=== PATIENT | male | born 1960 | race Caucasian/White ===

== ENCOUNTER 2016-10-10 08:52 | Day surgery (SDC) | payer BC ==
[~2016-10-10 08:52] MED LIST: LIDOCAINE HCL 1% MPF SOL ONE; PROPOFOL 500 MG/50 ML EMU IV ONE
[2016-10-10 09:23] VITALS: TEMP 97.1
[2016-10-10 10:52] VITALS: BP 150/88; PULSE 66; RESP 18; O2SAT 97
== END 2016-10-10 11:20 | disposition home or self-care (01) ==
LOC: SURG 08:52
PROVIDERS: ATTEND Internal Medicine Gastroenterology
DX: K21.9 Gastro-esophageal reflux disease without esophagitis (principal); Z87.19 Personal history of other diseases of the digestive system; K22.2 Esophageal obstruction; K44.9 Diaphragmatic hernia without obstruction or gangrene; K31.7 Polyp of stomach and duodenum; Q40.3 Congenital malformation of stomach, unspecified
CPT/HCPCS: 43239; 99001; J2001; J2704

== ENCOUNTER 2016-12-21 14:45 | Emergency (ER) | payer BC ==
[2016-12-21] MEDS ORDERED: MORPHINE SULFATE 10 MG/ML SOL ONE (14:50)
[2016-12-21] MEDS ORDERED: MORPHINE SULFATE 10 MG/ML SOL IV ONE (14:50)
[2016-12-21] MEDS ORDERED: TDAP VACCINE 0.5 ML SUS IM ONE ×2 (14:54→15:16)
[2016-12-21 14:58] VITALS: TEMP 96.5
[2016-12-21 15:02] LABS: BASOPHILS % (AUTO) 2 % (0-3); EOSINOPHILS % (AUTO) 3 % (0-9); HEMATOCRIT 44 % (39-53); MEAN CORPUSCULAR HGB CONC 35.1 gm/dl (32.0-36.0); MEAN CORPUSCULAR VOLUME 85 fL (80-100); MONOCYTES % (AUTO) 9.4 % (0-12); NEUTROPHILS % (AUTO) 34.6 % (37-80)
[2016-12-21 15:09] LABS: ALBUMIN 3.6 gm/dl (3.4-5.0)
[2016-12-21 15:10] LABS: POTASSIUM 2.8 mMol/L (3.5-5.1)
[2016-12-21] MEDS ORDERED: POTASSIUM CHLORIDE IV ONE (15:28)
[2016-12-21] MEDS ORDERED: SODIUM CHLORIDE IV ONE (15:28)
[2016-12-21] MEDS ORDERED: POTASSIUM CHLORIDE 2 MEQ/ML SOL IV ONE (15:29)
[2016-12-21] MEDS ORDERED: LIDOCAINE 1% W/EPI MPF 10 ML SOL ONE (15:38)
[2016-12-21] MEDS ORDERED: HYDROMORPHONE HCL 2 MG/ML SOL ONE (15:41)
[2016-12-21] MEDS ORDERED: HYDROMORPHONE HCL 2 MG/ML SOL IV ONE (15:41)
[2016-12-21] MEDS ORDERED: CEFTRIAXONE 1 GM (PREMIX) 1 GM/50 ML SOL IV ONE ×2 (16:16→16:17)
[2016-12-21] MEDS ORDERED: LIDOCAINE 1% W/EPI MPF 10 ML SOL INFIL ONE (16:16)
[2016-12-21] MEDS ORDERED: BACITRACIN 500 U/GM OIN TOP ONE ×3 (16:42→17:34)
[2016-12-21 18:52] VITALS: RESP 12
[2016-12-21 18:58] VITALS: BP 149/79; PULSE 72; O2SAT 100
== END 2016-12-21 18:46 | disposition home or self-care (01) ==
LOC: ED 14:45
DX: S41.111A Laceration without foreign body of right upper arm, initial encounter (principal); S01.01XA Laceration without foreign body of scalp, initial encounter; W11.XXXA Fall on and from ladder, initial encounter
CPT/HCPCS: 12035; 70450; 71260; 72125; 73030; 73070; 74177; 80053; 82150; 82550; 83605; 83690; 85025; 85610; 85730; 90715; 99285; J0696; J1170; J2270; J3480; Q9967; 12002; 90471; 96365; 96366; 96374; 96375; L0130; A6402; A6446